=== PATIENT | male | born 1985 | race Hispanic/Latino ===

== ENCOUNTER 2022-11-18 17:39 | Emergency (ER) | payer OTHER, SELFPAY ==
[2022-11-18] MEDS ORDERED: DIAZEPAM 5 MG TABLET ONE (18:12)
[2022-11-18] MEDS ORDERED: HYDROCODONE/APAP 5/325 MG TAB ONE (18:13)
--- NOTE | 2022-11-18 18:50 | RAD REPORT ---
EXAM DESCRIPTION: CTThoracic Spine W/o Cont11/18/2022 6:14 pm CLINICAL HISTORY: Back pain status post trauma COMPARISON: None TECHNIQUE: Computed axial tomography of thoracic spine was obtained with coronal and sagittal recons truction. All CT scans are performed using dose optimization technique as appropriate and may include automated exposure control or mA/KV adjustment according to patient size. FINDINGS: No fracture seen No dislocation Prominent osteophytes upper thoracic spine result in mild central spinal stenosis. IMPRESSION: Negative for a thoracic fracture If the patient has clinical symptoms to suggest spinal cord/canal pathology then MRI would be recomme nded.
--- NOTE | 2022-11-18 18:50 | RAD REPORT ---
EXAM DESCRIPTION: CT - C Spine Wo Con - 11/18/2022 6:14 pm CLINICAL HISTORY: Neck pain status post trauma COMPARISON: None. TECHNIQUE: Computed axial tomography of the cervical spine were obtained with sagittal and coronal r econstruction images generated and reviewed. All CT scans are performed using dose optimization technique as appropriate and may include automated exposure control or mA/KV adjustment according to patient size. FINDINGS: A cervical fracture is not seen. No dislocation. There appears to be small to moderate central disc herniation C4-5 IMPRESSION: A cervical fracture is not seen. Possible small to moderate central disc herniation C4-5. Nonemergent MRI recommended
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
[2022-11-18 19:49] VITALS: O2SAT 99
[2022-11-18 19:51] VITALS: BP 115/80; TEMP 97.5
== END 2022-11-18 19:29 | disposition home or self-care (01) ==
LOC: ER 17:39
DX: M54.2 Cervicalgia (principal); M54.9 Dorsalgia, unspecified
CPT/HCPCS: 72125; 72128; 99284